=== PATIENT | male | born 1980 ===

== ENCOUNTER 2019-02-04 19:40 | Emergency (ER) | payer OTHER ==
[~2019-02-04] VITALS: Ht 185.4 cm; Wt 95.3 kg
[2019-02-04] MEDS ORDERED: COZAAR50 MG (19:51)
== END 2019-02-04 21:36 | disposition home or self-care (01) ==
LOC: ER 19:40
DX: R42 Dizziness and giddiness (principal)

== ENCOUNTER → 2021-07-27 | Emergency (ER) | payer OTHER ==
[~2021-07-27] MED LIST: COZAAR50 MG
== END | disposition left against medical advice (07) ==
LOC: ER 17:59
DX: Z53.21 Procedure and treatment not carried out due to patient leaving prior to being seen by health care provider (principal)